=== PATIENT | male | born 1975 | race Two or more races ===

== ENCOUNTER → 2025-02-07 | Emergency (ER) | payer OTHER ==
[~2025-02-07] VITALS: Ht 175.3 cm; Wt 90.7 kg
[~2025-02-07] MED LIST: AMOX-CLAV 875-1 EACH PO; CEFTRIAXONE SODIUM 1,000 MG VIAL IM ONE; IBUPROFEN600 MG PO; VIGAMOX3 ML OP
== END | disposition home or self-care (01) ==
LOC: ER 13:21
DX: H01.003 Unspecified blepharitis right eye, unspecified eyelid (principal)